=== PATIENT | male | born 1955 | race Caucasian/White ===

== ENCOUNTER 2017-08-16 09:16 | Emergency (ER) | payer OTHER | END 2017-08-16 11:08 | disposition home or self-care (01) | LOC: FTE 09:16 | DX: S00.03XA Contusion of scalp, initial encounter (principal); W01.0XXA Fall on same level from slipping, tripping and stumbling without subsequent striking against object, initial encounter; Y92.480 Sidewalk as the place of occurrence of the external cause | CPT/HCPCS: 70450; 99284-25 ==

== ENCOUNTER 2018-01-10 23:00 | Emergency (ER) | payer OTHER ==
[2018-01-11] MEDS: KETOROLAC 30 MG INJ IV (00:14)
[2018-01-11] MEDS: ACETAMINOPHEN 325 MG TAB PO (00:14)
[2018-01-11] MEDS: CEFTRIAXONE 1 GM/50 ML (PMX) 50 ML IVPB (00:14)
[2018-01-11 00:15] LABS: ADD MAN DIFF? NO
[2018-01-11 00:18] LABS: BASOPHIL # 0.1 10^3/ul (0.0-0.1); BASOPHILS % 0.4 % (0.0-2.0); EOSINOPHILS % 0.1 % (0.0-7.0); HEMATOCRIT 37.9 % (42.0-52.0); HEMOGLOBIN 12.8 g/dl (14.0-18.0); LYMPHOCYTES # 1.7 10^3/ul (0.8-2.9); LYMPHOCYTES % 12.3 % (15.0-51.0); MEAN CORPUSCULAR HEMOGLOBIN 28.8 pg (29.0-33.0); MEAN CORPUSCULAR HGB CONC 33.8 g/dl (32.0-37.0); MEAN CORPUSCULAR VOLUME 85.4 fl (82.0-101.0); MEAN PLATELET VOLUME 9.4 fl (7.4-10.4); MONOCYTE # 1.3 10^3/ul (0.3-0.9); MONOCYTES % 9.4 % (0.0-11.0); NEUTROPHIL # 10.6 10^3/ul (1.6-7.5); NEUTROPHILS % 77.1 % (39.0-77.0); PLATELET COUNT 150 10^3/UL (140-415); RED BLOOD COUNT 4.44 10^6/ul (4.70-6.10); RED CELL DISTRIBUTION WIDTH 14.3 % (11.5-14.5)
[2018-01-11 00:18] LABS: WHITE BLOOD COUNT 13.7 10^3/ul (4.8-10.8)
[2018-01-11 00:24] LABS: ADD UMIC YES; UR ASCORBIC ACID NEGATIVE (NEGATIVE); UR BILIRUBIN (Dip) NEGATIVE (NEGATIVE); UR BLOOD (Dip) NEGATIVE (NEGATIVE); UR CLARITY CLEAR (CLEAR); UR COLOR YELLOW (YELLOW); UR GLUCOSE (Dip) NEGATIVE (NEGATIVE); UR KETONES (Dip) NEGATIVE (NEGATIVE); UR LEUKOCYTE ESTERASE (Dip) NEGATIVE Leu/ul (NEGATIVE); UR NITRITE (Dip) NEGATIVE (NEGATIVE); UR RBC 0 /HPF (0-5); UR SPECIFIC GRAVITY (Dip) 1.021 (1.003-1.030); UR TOTAL PROTEIN (Dip) 1+ mg/dl (NEGATIVE); UR UROBILINOGEN (Dip) 2+ mg/dL (NEGATIVE); UR WBC 0 /HPF (0-5)
[2018-01-11 00:39] LABS: INR 1.14; PROTIME 14.8 Sec (11.9-14.9); PT RATIO 1.2
[2018-01-11 00:40] LABS: PARTIAL THROMBOPLASTIN TIME 32.6 Sec (23.0-35.0)
[2018-01-11 00:43] LABS: ANION GAP 9 (5-13); BLOOD UREA NITROGEN 26 mg/dl (7-20); CALCIUM 8.7 mg/dl (8.4-10.2); CARBON DIOXIDE 30 mmol/L (21-31); CHLORIDE 98 mmol/L (97-110); CREATININE 0.97 mg/dl (0.61-1.24); Estimated GFR > 60 mL/min (>60); GLUCOSE 122 mg/dl (70-220); POTASSIUM 3.7 mmol/L (3.5-5.1); SODIUM 137 mmol/L (135-144)
[2018-01-11 00:54] LABS: TROPONIN-I < 0.012 ng/ml (0.000-0.120)
[2018-01-11] MEDS: AZITHROMYCIN 250 MG TAB PO (02:18)
== END 2018-01-11 02:25 | disposition home or self-care (01) ==
LOC: E/R 23:00
DX: J18.1 Lobar pneumonia, unspecified organism (principal); F17.210 Nicotine dependence, cigarettes, uncomplicated; R10.9 Unspecified abdominal pain
CPT/HCPCS: 36415; 71045; 74176; 80048; 81001; 83605; 84484; 85025; 85610; 85730; 87040; 87086; 96374; 96375; 99285-25

== ENCOUNTER 2018-05-31 20:16 | Emergency (ER) | payer OTHER ==
[2018-05-31] MEDS: HYDROCODONE/APAP (5/325) TAB PO (22:23)
== END 2018-06-01 00:38 | disposition home or self-care (01) ==
LOC: FTE 06-01 00:38
DX: S22.42XA Multiple fractures of ribs, left side, initial encounter for closed fracture (principal); F17.210 Nicotine dependence, cigarettes, uncomplicated; V18.4XXA Pedal cycle driver injured in noncollision transport accident in traffic accident, initial encounter
CPT/HCPCS: 71100; 99283-25

== ENCOUNTER 2018-10-14 23:31 | Inpatient (IN) | payer OTHER ==
[2018-10-15 00:14] LABS: ADD MAN DIFF? NO
[2018-10-15 00:15] LABS: ABNORMAL IP MESSAGE 1; BASOPHIL # 0.1 10^3/ul (0.0-0.1); BASOPHILS % 0.7 % (0.0-2.0); EOSINOPHILS # 0.5 10^3/ul (0.0-0.5); EOSINOPHILS % 3.8 % (0.0-7.0); HEMATOCRIT 35.6 % (42.0-52.0); HEMOGLOBIN 11.7 g/dl (14.0-18.0); LYMPHOCYTES # 2.4 10^3/ul (0.8-2.9); LYMPHOCYTES % 19.6 % (15.0-51.0); MEAN CORPUSCULAR HEMOGLOBIN 27.6 pg (29.0-33.0); MEAN CORPUSCULAR HGB CONC 32.9 g/dl (32.0-37.0); MEAN PLATELET VOLUME 9.4 fl (7.4-10.4); MONOCYTE # 1.6 10^3/ul (0.3-0.9); MONOCYTES % 12.6 % (0.0-11.0); NEUTROPHIL # 7.8 10^3/ul (1.6-7.5); NEUTROPHILS % 62.9 % (39.0-77.0); PLATELET COUNT 329 10^3/UL (140-415); POSITIVE DIFF @See below; RED BLOOD COUNT 4.24 10^6/ul (4.70-6.10); RED CELL DISTRIBUTION WIDTH 13.8 % (11.5-14.5)
[2018-10-15 00:15] LABS: WHITE BLOOD COUNT 12.4 10^3/ul (4.8-10.8)
[2018-10-15] MEDS: SOD CHLORIDE 0.9% 1,000 ML IV (00:29)
[2018-10-15 00:34] LABS: ALANINE AMINOTRANSFERASE 19 IU/L (13-69); ALBUMIN 3.2 g/dl (3.3-4.9); ALBUMIN/GLOBULIN RATIO 0.82; ALKALINE PHOSPHATASE 272 IU/L (42-121); ANION GAP 11 (5-13); ASPARTATE AMINO TRANSFERASE 22 IU/L (15-46); BILIRUBIN,INDIRECT 0.4 mg/dl (0-1.1); BILIRUBIN,TOTAL 0.4 mg/dl (0.2-1.3); BLOOD UREA NITROGEN 26 mg/dl (7-20); CALCIUM 8.9 mg/dl (8.4-10.2); CARBON DIOXIDE 27 mmol/L (21-31); CHLORIDE 99 mmol/L (97-110); CREATININE 1.08 mg/dl (0.61-1.24); Estimated GFR > 60 mL/min (>60); GLUCOSE 162 mg/dl (70-220); LIPASE 67 U/L (23-300); POTASSIUM 3.5 mmol/L (3.5-5.1); SODIUM 137 mmol/L (135-144); TOTAL PROTEIN 7.1 g/dl (6.1-8.1)
[2018-10-15 00:35] LABS: INR 1.21; PROTIME 15.4 Sec (11.9-14.9); PT RATIO 1.2
[2018-10-15 00:36] LABS: PARTIAL THROMBOPLASTIN TIME 34.4 Sec (23.0-35.0)
[2018-10-15 00:43] LABS: B-TYPE NATRIURETIC PEPTIDE 1390 PG/ML (0-125); TROPONIN-I < 0.012 ng/ml (0.000-0.120)
[2018-10-15] MEDS: ENALAPRILAT 1.25 MG INJ IV (00:56)
[2018-10-15] MEDS: ASPIRIN 81 MG TAB PO ×2 (00:56→08:29)
[2018-10-15 01:04] LABS: ETHANOL < 10.0 mg/dl (0-0)
[2018-10-15 01:21] LABS: D-DIMER 1012.53 ng/ml (<460)
[2018-10-15] MEDS ORDERED: NACL 0.9% 3 ML SYG IV (02:00)
[2018-10-15] MEDS ORDERED: NITROGLYCERIN (SL) 0.4 MG TAB SL (02:00)
[2018-10-15] MEDS ORDERED: BISACODYL (EC) 5 MG TAB PO (02:00)
[2018-10-15] MEDS ORDERED: ONDANSETRON 4 MG INJ IV (02:00)
[2018-10-15] MEDS ORDERED: DOCUSATE SODIUM 100 MG CAP PO (02:00)
[2018-10-15] MEDS: IOHEXOL 100 ML (02:50)
[2018-10-15] MEDS: SOD CHLORIDE 0.9% 100 ML (02:50)
[2018-10-15] MEDS ORDERED: ENOXAPARIN 60 MG/0.6 ML SYG SC (05:00)
[2018-10-15 06:42] LABS: IRON 34 ug/dl (35-150)
[2018-10-15 06:56] LABS: % IRON SATURATION 14 % SAT (22-52); TOTAL IRON BINDING CAPACITY 241 ug/dl (241-421)
[2018-10-15 06:59] LABS: CK-MB 1.22 ng/ml (0.0-2.4); CREATINE KINASE < 20 IU/L (23-200); TROPONIN-I < 0.012 ng/ml (0.000-0.120)
[2018-10-15] MEDS: DILTIAZEM 25 MG INJ IV (07:08)
[2018-10-15] MEDS: NACL 3% FOR INHALATION 15 ML NEBU NEB (07:30)
[2018-10-15] MEDS: MAGNESIUM SULFATE 2 GM/50 ML 50 ML IVPB (08:29)
[2018-10-15] MEDS: POTASSIUM CHLORIDE (SR) 20 MEQ TAB PO ×2 (08:30→20:21)
[2018-10-15] MEDS: ACETAMINOPHEN 325 MG TAB PO (08:56)
[2018-10-15] MEDS: morphine 2 MG INJ IV ×2 (12:38→20:20)
[2018-10-15 12:44] LABS: CREATINE KINASE < 20 IU/L (23-200)
[2018-10-15 12:45] LABS: TROPONIN-I < 0.012 ng/ml (0.000-0.120)
[2018-10-15 13:07] LABS: HEPATITIS B SURFACE ANTIGEN NEGATIVE (NEGATIVE)
[2018-10-15 13:14] LABS: HIV 1&2 ANTIBODY NEGATIVE (NEGATIVE)
[2018-10-15 13:27] LABS: HEPATITIS C VIRAL ANTIBODY REACTIVE (NEGATIVE)
[2018-10-15 15:27] LABS: HEPATITIS B SURFACE ANTIBODY INDETERMINATE (NEGATIVE)
[2018-10-15] MEDS ORDERED: LIDOCAINE 1% (MDV) 20 ML INJ (16:01)
[2018-10-15] MEDS ORDERED: FENTAnyl 50 MCG/ML VIAL (16:38)
[2018-10-15] MEDS ORDERED: CEFAZOLIN 1 GM/50 ML (PMX) 50 ML IVPB (16:52)
[2018-10-15 17:15] LABS: RAPID PLASMA REAGIN NONREACTIVE (NR)
[2018-10-15] MEDS ORDERED: SOD CHLORIDE 0.9% 1,000 ML (17:32)
[2018-10-15 19:05] LABS: FLD MN% 50.2 %; FLD PMN% 49.8 %; FLD RBC 2119000 /uL; FLD WBC 2813 /cmm
[2018-10-15 19:10] LABS: ADD MAN DIFF? NO
[2018-10-15 19:12] LABS: BASOPHIL # 0.1 10^3/ul (0.0-0.1); BASOPHILS % 0.6 % (0.0-2.0); EOSINOPHILS # 0.4 10^3/ul (0.0-0.5); EOSINOPHILS % 4.7 % (0.0-7.0); LYMPHOCYTES # 1.6 10^3/ul (0.8-2.9); MEAN CORPUSCULAR HEMOGLOBIN 27.8 pg (29.0-33.0); MEAN CORPUSCULAR HGB CONC 32.5 g/dl (32.0-37.0); MEAN CORPUSCULAR VOLUME 85.7 fl (82.0-101.0); MEAN PLATELET VOLUME 9.2 fl (7.4-10.4); MONOCYTE # 0.8 10^3/ul (0.3-0.9); MONOCYTES % 9.2 % (0.0-11.0); NEUTROPHIL # 5.8 10^3/ul (1.6-7.5); NEUTROPHILS % 66.9 % (39.0-77.0); PLATELET COUNT 295 10^3/UL (140-415); RED BLOOD COUNT 4.67 10^6/ul (4.70-6.10); RED CELL DISTRIBUTION WIDTH 14.3 % (11.5-14.5)
[2018-10-15 19:12] LABS: WHITE BLOOD COUNT 8.7 10^3/ul (4.8-10.8)
[2018-10-15 19:18] LABS: FLUID GLUCOSE 92 mg/dl
[2018-10-15 19:19] LABS: FLUID TOTAL PROTEIN 5.3 g/dl; FLUID TYPE PERICARDIAL FLUID
[2018-10-15 19:31] LABS: MAGNESIUM 2.1 mg/dl (1.7-2.5)
[2018-10-15 19:32] LABS: ANION GAP 8 (5-13); BLOOD UREA NITROGEN 22 mg/dl (7-20); CALCIUM 8.6 mg/dl (8.4-10.2); CARBON DIOXIDE 28 mmol/L (21-31); CHLORIDE 100 mmol/L (97-110); CREATININE 0.77 mg/dl (0.61-1.24); Estimated GFR > 60 mL/min (>60); FLUID LD 3278 U/L; FLUID TYPE PERICARDIAL FLUID; GLUCOSE 200 mg/dl (70-220); SODIUM 136 mmol/L (135-144)
[2018-10-15] MEDS: SOTALOL 80 MG TAB PO (20:21)
[2018-10-15 20:28] LABS: FLD CLARITY BLOODY; FLD COLOR RED
[2018-10-15 20:28] LABS: FLD TYPE PERICARDIAL DLUID
[2018-10-15 22:54] LABS: SITE Right Upper Forearm; TIME 2245
[2018-10-15] MEDS: CEFAZOLIN 1 GM/50 ML (PMX) 50 ML IVPB (23:16)
[2018-10-15 23:44] LABS: IMMUNOGLOBULIN A 369 mg/dl (70-400); IMMUNOGLOBULIN G 1574 mg/dl (700-1600); IMMUNOGLOBULIN M 107 mg/dl (40-230)
[2018-10-16 00:06] LABS: PROSTATE SPECIFIC ANTIGEN 1.1 ng/ml (0.0-4.0)
[2018-10-16] MEDS: CEFAZOLIN 1 GM/50 ML (PMX) 50 ML IVPB ×3 (05:44→21:19)
[2018-10-16 05:49] LABS: ADD MAN DIFF? NO
[2018-10-16] MEDS: morphine 2 MG INJ IV ×3 (05:54→19:14)
[2018-10-16 05:58] LABS: WHITE BLOOD COUNT 10.6 10^3/ul (4.8-10.8)
[2018-10-16 05:58] LABS: BASOPHIL # 0.1 10^3/ul (0.0-0.1); BASOPHILS % 0.8 % (0.0-2.0); EOSINOPHILS # 0.7 10^3/ul (0.0-0.5); EOSINOPHILS % 6.2 % (0.0-7.0); HEMATOCRIT 36.4 % (42.0-52.0); HEMOGLOBIN 11.9 g/dl (14.0-18.0); LYMPHOCYTES # 2.3 10^3/ul (0.8-2.9); LYMPHOCYTES % 21.8 % (15.0-51.0); MEAN CORPUSCULAR HEMOGLOBIN 28.3 pg (29.0-33.0); MEAN CORPUSCULAR HGB CONC 32.7 g/dl (32.0-37.0); MEAN CORPUSCULAR VOLUME 86.7 fl (82.0-101.0); MEAN PLATELET VOLUME 9.7 fl (7.4-10.4); MONOCYTE # 1.3 10^3/ul (0.3-0.9); MONOCYTES % 12.6 % (0.0-11.0); NEUTROPHIL # 6.2 10^3/ul (1.6-7.5); PLATELET COUNT 275 10^3/UL (140-415); RED CELL DISTRIBUTION WIDTH 14.1 % (11.5-14.5)
[2018-10-16 06:23] LABS: ALANINE AMINOTRANSFERASE 19 IU/L (13-69); ALBUMIN 2.5 g/dl (3.3-4.9); ALBUMIN/GLOBULIN RATIO 0.73; ALKALINE PHOSPHATASE 252 IU/L (42-121); ANION GAP 5 (5-13); ASPARTATE AMINO TRANSFERASE 23 IU/L (15-46); BILIRUBIN,INDIRECT 0.3 mg/dl (0-1.1); BILIRUBIN,TOTAL 0.3 mg/dl (0.2-1.3); BLOOD UREA NITROGEN 23 mg/dl (7-20); CALCIUM 8.6 mg/dl (8.4-10.2); CARBON DIOXIDE 31 mmol/L (21-31); CHLORIDE 104 mmol/L (97-110); CREATININE 0.89 mg/dl (0.61-1.24); Estimated GFR > 60 mL/min (>60); GLUCOSE 105 mg/dl (70-220); POTASSIUM 4.1 mmol/L (3.5-5.1); SODIUM 140 mmol/L (135-144); TOTAL PROTEIN 5.9 g/dl (6.1-8.1)
[2018-10-16 06:34] LABS: FREE T4 (FREE THYROXINE) 1.84 ng/dl (0.78-2.44)
[2018-10-16 06:49] LABS: THYROID STIMULATING HORMONE 0.798 MIU/L (0.465-4.680)
[2018-10-16] MEDS: ASPIRIN 81 MG TAB PO (09:26)
[2018-10-16] MEDS: SOTALOL 80 MG TAB PO ×2 (09:27→21:19)
[2018-10-17] MEDS: morphine 2 MG INJ IV ×5 (01:16→23:09)
[2018-10-17 04:46] LABS: PROTEIN, TOTAL 5.9 g/dL (6.1-8.1)
[2018-10-17] MEDS: CEFAZOLIN 1 GM/50 ML (PMX) 50 ML IVPB ×3 (05:04→22:15)
[2018-10-17 05:14] LABS: ADD MAN DIFF? NO
[2018-10-17 05:15] LABS: WHITE BLOOD COUNT 12.9 10^3/ul (4.8-10.8)
[2018-10-17 05:15] LABS: ABNORMAL IP MESSAGE 1; BASOPHIL # 0.1 10^3/ul (0.0-0.1); BASOPHILS % 0.8 % (0.0-2.0); EOSINOPHILS # 0.8 10^3/ul (0.0-0.5); EOSINOPHILS % 6.2 % (0.0-7.0); HEMATOCRIT 37.3 % (42.0-52.0); HEMOGLOBIN 12.2 g/dl (14.0-18.0); LYMPHOCYTES # 3.3 10^3/ul (0.8-2.9); LYMPHOCYTES % 25.6 % (15.0-51.0); MEAN CORPUSCULAR HEMOGLOBIN 28.4 pg (29.0-33.0); MEAN CORPUSCULAR HGB CONC 32.7 g/dl (32.0-37.0); MEAN CORPUSCULAR VOLUME 86.7 fl (82.0-101.0); MEAN PLATELET VOLUME 9.5 fl (7.4-10.4); MONOCYTE # 1.6 10^3/ul (0.3-0.9); MONOCYTES % 12.4 % (0.0-11.0); NEUTROPHILS % 54.2 % (39.0-77.0); PLATELET COUNT 315 10^3/UL (140-415); POSITIVE DIFF @See below; RED CELL DISTRIBUTION WIDTH 14.1 % (11.5-14.5)
[2018-10-17 05:42] LABS: ANION GAP 3 (5-13); BLOOD UREA NITROGEN 19 mg/dl (7-20); CALCIUM 8.6 mg/dl (8.4-10.2); CARBON DIOXIDE 29 mmol/L (21-31); CHLORIDE 104 mmol/L (97-110); CREATININE 0.89 mg/dl (0.61-1.24); Estimated GFR > 60 mL/min (>60); GLUCOSE 125 mg/dl (70-220); POTASSIUM 4.1 mmol/L (3.5-5.1); SODIUM 136 mmol/L (135-144)
[2018-10-17] MEDS: ASPIRIN 81 MG TAB PO (08:35)
[2018-10-17] MEDS: SOTALOL 80 MG TAB PO ×2 (08:35→22:15)
[2018-10-17 10:21] LABS: NIL 0.49 IU/mL; QUANTIFERON(R)-TB GOLD NEGATIVE (NEGATIVE); TB-NIL <0.00 IU/mL; TB2-NIL <0.00 IU/mL
[2018-10-17 14:47] LABS: FLUID COMMENT Malignant cells
[2018-10-17 15:11] LABS: BETA-2 MICROGLOBULIN 4.01 mg/L (< OR = 2.51)
[2018-10-17 18:27] LABS: ALBUMIN 2.6 g/dL (3.8-4.8); ALPHA-1-GLOBULINS 0.4 g/dL (0.2-0.3); ALPHA-2-GLOBULINS 0.9 g/dL (0.5-0.9); BETA 2 GLOBULINS 0.3 g/dL (0.2-0.5); BETA GLOBULINS 0.4 g/dL (0.4-0.6); GAMMA GLOBULINS 1.4 g/dL (0.8-1.7)
[2018-10-17 21:09] LABS: FORTY EIGHT HOUR READING 0 mm (0-9)
[2018-10-18] MEDS: CEFAZOLIN 1 GM/50 ML (PMX) 50 ML IVPB ×3 (05:27→21:53)
[2018-10-18 05:49] LABS: ADD MAN DIFF? NO
[2018-10-18 05:59] LABS: WHITE BLOOD COUNT 10.5 10^3/ul (4.8-10.8)
[2018-10-18 05:59] LABS: BASOPHIL # 0.1 10^3/ul (0.0-0.1); BASOPHILS % 0.9 % (0.0-2.0); EOSINOPHILS # 0.8 10^3/ul (0.0-0.5); HEMATOCRIT 35.9 % (42.0-52.0); HEMOGLOBIN 11.7 g/dl (14.0-18.0); LYMPHOCYTES % 28.1 % (15.0-51.0); MEAN CORPUSCULAR HEMOGLOBIN 27.9 pg (29.0-33.0); MEAN CORPUSCULAR HGB CONC 32.6 g/dl (32.0-37.0); MEAN CORPUSCULAR VOLUME 85.7 fl (82.0-101.0); MEAN PLATELET VOLUME 9.5 fl (7.4-10.4); MONOCYTE # 1.3 10^3/ul (0.3-0.9); MONOCYTES % 12.5 % (0.0-11.0); NEUTROPHIL # 5.2 10^3/ul (1.6-7.5); NEUTROPHILS % 49.7 % (39.0-77.0); PLATELET COUNT 286 10^3/UL (140-415); RED BLOOD COUNT 4.19 10^6/ul (4.70-6.10); RED CELL DISTRIBUTION WIDTH 14.5 % (11.5-14.5)
[2018-10-18 06:18] LABS: ANION GAP 4 (5-13); BLOOD UREA NITROGEN 22 mg/dl (7-20); CALCIUM 8.6 mg/dl (8.4-10.2); CARBON DIOXIDE 27 mmol/L (21-31); CHLORIDE 106 mmol/L (97-110); CREATININE 0.73 mg/dl (0.61-1.24); Estimated GFR > 60 mL/min (>60); GLUCOSE 143 mg/dl (70-220); POTASSIUM 3.7 mmol/L (3.5-5.1); SODIUM 137 mmol/L (135-144)
[2018-10-18] MEDS: morphine 2 MG INJ IV ×4 (08:35→21:06)
[2018-10-18] MEDS: ASPIRIN 81 MG TAB PO (10:19)
[2018-10-18] MEDS: SOTALOL 80 MG TAB PO ×2 (10:19→21:04)
[2018-10-18 23:25] LABS: SEVENTY TWO HOUR READING 0 mm (0-9)
[2018-10-19] MEDS: morphine 2 MG INJ IV ×4 (01:38→23:36)
[2018-10-19] MEDS: CEFAZOLIN 1 GM/50 ML (PMX) 50 ML IVPB (06:42)
[2018-10-19 06:56] LABS: ADD MAN DIFF? NO
[2018-10-19 07:03] LABS: BASOPHIL # 0.1 10^3/ul (0.0-0.1); BASOPHILS % 0.8 % (0.0-2.0); EOSINOPHILS # 0.8 10^3/ul (0.0-0.5); EOSINOPHILS % 8.2 % (0.0-7.0); HEMATOCRIT 35.4 % (42.0-52.0); HEMOGLOBIN 11.1 g/dl (14.0-18.0); LYMPHOCYTES # 2.9 10^3/ul (0.8-2.9); LYMPHOCYTES % 29.1 % (15.0-51.0); MEAN CORPUSCULAR HEMOGLOBIN 27.4 pg (29.0-33.0); MEAN CORPUSCULAR HGB CONC 31.4 g/dl (32.0-37.0); MEAN CORPUSCULAR VOLUME 87.4 fl (82.0-101.0); MEAN PLATELET VOLUME 9.2 fl (7.4-10.4); MONOCYTE # 1.4 10^3/ul (0.3-0.9); MONOCYTES % 14.3 % (0.0-11.0); NEUTROPHIL # 4.7 10^3/ul (1.6-7.5); NEUTROPHILS % 46.5 % (39.0-77.0); PLATELET COUNT 266 10^3/UL (140-415); RED BLOOD COUNT 4.05 10^6/ul (4.70-6.10); RED CELL DISTRIBUTION WIDTH 14.6 % (11.5-14.5)
[2018-10-19 07:03] LABS: WHITE BLOOD COUNT 10.1 10^3/ul (4.8-10.8)
[2018-10-19 07:35] LABS: ANION GAP 1 (5-13); BLOOD UREA NITROGEN 19 mg/dl (7-20); CALCIUM 8.7 mg/dl (8.4-10.2); CARBON DIOXIDE 33 mmol/L (21-31); CHLORIDE 103 mmol/L (97-110); CREATININE 0.82 mg/dl (0.61-1.24); Estimated GFR > 60 mL/min (>60); GLUCOSE 123 mg/dl (70-220); POTASSIUM 4.7 mmol/L (3.5-5.1); SODIUM 137 mmol/L (135-144)
[2018-10-19] MEDS: ASPIRIN 81 MG TAB PO (08:53)
[2018-10-19] MEDS: METOPROLOL (XL) 25 MG TAB PO (20:37)
[2018-10-20 07:02] LABS: ANION GAP 3 (5-13); BLOOD UREA NITROGEN 20 mg/dl (7-20); CALCIUM 8.6 mg/dl (8.4-10.2); CARBON DIOXIDE 31 mmol/L (21-31); CHLORIDE 103 mmol/L (97-110); CREATININE 0.71 mg/dl (0.61-1.24); Estimated GFR > 60 mL/min (>60); GLUCOSE 133 mg/dl (70-220); POTASSIUM 3.8 mmol/L (3.5-5.1); SODIUM 137 mmol/L (135-144)
[2018-10-20] MEDS: ASPIRIN 81 MG TAB PO (09:01)
[2018-10-20] MEDS: morphine 2 MG INJ IV ×2 (11:16→16:03)
[2018-10-20] MEDS ORDERED: HYDROCODONE/APAP (5/325) TAB PO (16:00)
[2018-10-20] MEDS: HYDROCODONE/APAP (5/325) TAB PO ×2 (18:43→22:44)
[2018-10-20] MEDS: METOPROLOL (XL) 25 MG TAB PO (20:14)
[2018-10-21] MEDS: ASPIRIN 81 MG TAB PO (08:31)
[2018-10-21] MEDS: HYDROCODONE/APAP (5/325) TAB PO ×2 (08:37→16:23)
[2018-10-21] MEDS: METOPROLOL (XL) 25 MG TAB PO (20:28)
[2018-10-21] MEDS: OXYCODONE/ACETAMINOPHEN (5/325) TAB PO (21:16)
[2018-10-22] MEDS: ASPIRIN 81 MG TAB PO (08:14)
[2018-10-22] MEDS: OXYCODONE/ACETAMINOPHEN (5/325) TAB PO ×2 (08:14→23:20)
[2018-10-22] MEDS: METOPROLOL 5 MG INJ IV (15:22)
[2018-10-22] MEDS: morphine 2 MG INJ IV (20:46)
[2018-10-22] MEDS: METOPROLOL (XL) 25 MG TAB PO (20:47)
[2018-10-23] MEDS: ASPIRIN 81 MG TAB PO (09:01)
[2018-10-23] MEDS: OXYCODONE/ACETAMINOPHEN (5/325) TAB PO ×3 (09:01→17:24)
[2018-10-23] MEDS: METOPROLOL (XL) 25 MG TAB PO (20:25)
[2018-10-24] MEDS: OXYCODONE/ACETAMINOPHEN (5/325) TAB PO ×4 (01:44→21:54)
[2018-10-24] MEDS: ASPIRIN (EC) 81 MG TAB PO (08:46)
[2018-10-24] MEDS: METOPROLOL (XL) 25 MG TAB PO (20:42)
[2018-10-25] MEDS: morphine 2 MG INJ IV (02:11)
[2018-10-25] MEDS: OXYCODONE/ACETAMINOPHEN (5/325) TAB PO ×4 (03:59→16:41)
== END 2018-10-25 17:30 | disposition home or self-care (01) | DRG 315 ==
LOC: E/R 23:31 → 6WM 10-18 13:30 → ICU 10-15 02:40 → 6WM 10-15 01:19 → MS3 10-22 23:50 → 6WM 10-15 06:48 → ICU 10-15 15:44
PROC: 0W9D30Z Drainage of Pericardial Cavity with Drainage Device, Percutaneous Approach (ICD-10-PCS; principal; 2018-10-15 16:30)
DX: I31.3 Pericardial effusion (noninflammatory) (principal); C34.90 Malignant neoplasm of unspecified part of unspecified bronchus or lung; Z68.1 Body mass index [BMI] 19.9 or less, adult; R64 Cachexia; C79.51 Secondary malignant neoplasm of bone; C79.89 Secondary malignant neoplasm of other specified sites; I31.4 Cardiac tamponade; E86.0 Dehydration; I10 Essential (primary) hypertension; I48.0 Paroxysmal atrial fibrillation; Z59.0 Homelessness; Z72.0 Tobacco use; N40.0 Benign prostatic hyperplasia without lower urinary tract symptoms; R07.81 Pleurodynia; R63.4 Abnormal weight loss; J43.2 Centrilobular emphysema; D63.8 Anemia in other chronic diseases classified elsewhere; B19.20 Unspecified viral hepatitis C without hepatic coma; G89.3 Neoplasm related pain (acute) (chronic)
CPT/HCPCS: 33010; 36415; 70450; 71045; 71275; 72157; 74176; 77075; 80048; 80053; 80307; 82378; 82550; 82553; 82728; 82784; 82945; 83540; 83615; 83690; 83735; 83880; 84153; 84154; 84155; 84157; 84165; 84439; 84443; 84484; 85025; 85378; 85610; 85730; 86320; 86480; 86580; 86592; 86703; 86706; 86803; 87040-91; 87070; 87081; 87102; 87116; 87340; 87556; 88104; 88305; 88341; 88342; 89051; 93005; 93306; 93308; 93970; 96374; 99285-25